=== PATIENT | male | born 1935 | race Caucasian/White ===

== ENCOUNTER 2019-10-04 09:18 | Outpatient (CLI) | payer MEDICARE ==
[2019-10-04 10:30] LABS: BASOPHILS # (AUTO) 0.04 x10^3/uL (0-0.1); BASOPHILS % (AUTO) 0 % (0-1); EOSINOPHILS # (AUTO) 0.11 x10^3/uL (0-0.4); EOSINOPHILS % (AUTO) 1 % (1-7); LYMPHOCYTES # (AUTO) 1.17 x10^3/uL (1-3.4); LYMPHOCYTES % (AUTO) 13 % (22-44); MD NO; MEAN CORPUSCULAR HGB CONC 33.1 g/dL (33.2-36.2); MEAN CORPUSCULAR VOLUME 96.5 fL (81-97); MEAN PLATELET VOLUME 9.2 fL (7.4-10.4); MONOCYTES # (AUTO) 0.82 x10^3/uL (0.2-0.8); MONOCYTES % (AUTO) 10 % (2-9); NEUTROPHILS # (AUTO) 6.58 x10^3/uL (1.8-6.8); NEUTROPHILS % (AUTO) 76 % (42-75); PLATELET COUNT 195 x10^3/uL (130-400); RED BLOOD COUNT 4.86 x10^6/uL (4.38-5.82); RED CELL DISTRIBUTION WIDTH 14.2 % (9.4-14.8)
[2019-10-04 10:38] LABS: ALANINE AMINOTRANSFERASE 9 U/L (12-78); ALBUMIN 3.8 g/dL (3.4-5.0); ANION GAP 8 mmol/L (5-15); CALCIUM 9.4 mg/dL (8.5-10.1); CHLORIDE 106 mmol/L (98-107); CREATININE 1.11 mg/dL (0.7-1.3)
[2019-10-04 10:40] LABS: ALKALINE PHOSPHATASE 137 U/L (45-117); BILIRUBIN,TOTAL 1.7 mg/dL (0.2-1.0); TOTAL PROTEIN 7.7 g/dL (6.4-8.2)
[2019-10-04] MEDS ORDERED: GLYC2TAB21 PO (11:54)
[2019-10-04] MEDS ORDERED: PRAM0.12 PO (11:54)
[2019-10-04] MEDS ORDERED: HYDR12.517 PO (11:54)
[2019-10-04] MEDS ORDERED: ATOR40TA PO (11:54)
[2019-10-04] MEDS ORDERED: CARB1TAB3 PO (11:54)
[2019-10-04] MEDS ORDERED: CLOP75TA52 PO (11:54)
== END 2019-10-04 23:59 | disposition home or self-care (01) ==
LOC: STAR 09:18
PROVIDERS: ATTEND Surgery
DX: Z01.818 Encounter for other preprocedural examination (principal); K40.90 Unilateral inguinal hernia, without obstruction or gangrene, not specified as recurrent; I44.4 Left anterior fascicular block
CPT/HCPCS: 36415; 80053; 85025; 93005

== ENCOUNTER 2019-10-08 13:25 | Day surgery (SDC) | payer MEDICARE ==
[~2019-10-08] VITALS: Ht 177.8 cm; Wt 86.7 kg
[~2019-10-08 13:25] MED LIST: ATOR40TA PO; CARB1TAB3 PO; CEFAZOLIN 1,000 MG ONE; CLOP75TA52 PO; GLYC2TAB21 PO; HYDR12.517 PO; ONDANSETRON 2MG/ML, 2ML ONE; PRAM0.12 PO; PROPOFOL 10 MG/ML, 50ML ONE
[2019-10-08] MEDS ORDERED: LACTATED RINGERS 1,000 ML IV ONE (13:46)
[2019-10-08] MEDS ORDERED: CHLORHEXIDINE 15 ML UDC MM STA (13:46)
[2019-10-08 13:49] VITALS: BP 115/74
[2019-10-08] MEDS ORDERED: CHLORHEXIDINE 15 ML UDC ONE (13:56)
[2019-10-08] MEDS ORDERED: FENTANYL PF 250 MCG/5ML ONE (15:57)
[2019-10-08] MEDS ORDERED: BUPIVACAINE/PF-EPI 0.25% 1:200K ONE (16:03)
[2019-10-08] MEDS ORDERED: DIPHENHYDRAMINE 50 MG/ML, 1ML IVPush PRN (17:00)
[2019-10-08] MEDS ORDERED: MIDAZOLAM 1 MG/ML, 2ML IV PRN (17:00)
[2019-10-08] MEDS ORDERED: LABETALOL 5MG/ML, 20ML IV PRN (17:00)
[2019-10-08] MEDS ORDERED: OXYcodone 5 MG/5 ML ORAL.SOL UDC PO PRN (17:00)
[2019-10-08] MEDS ORDERED: HYDROmorphone 1 MG/ML, 1ML INJ IVPush PRN (17:00)
[2019-10-08] MEDS ORDERED: ONDANSETRON 2MG/ML, 2ML IVPush PRN ×2 (17:00→19:00)
[2019-10-08] MEDS ORDERED: EPHEDRINE 50 MG/ML, 1ML IVPush PRN (17:00)
[2019-10-08] MEDS ORDERED: FENTANYL PF 100 MCG/2ML IV PRN (17:00)
[2019-10-08] MEDS ORDERED: EPHEDRINE 50 MG/ML, 1ML IM PRN (17:00)
[2019-10-08] MEDS ORDERED: PROMETHAZINE 25 MG/ML, 1ML IVPush PRN (17:00)
[2019-10-08] MEDS ORDERED: ACETAMINOPHEN 325 MG TABLET PO PRN (17:00)
[2019-10-08] MEDS ORDERED: ACETAMINOPHEN 650 MG/20.3 ML UDC ONE (17:28)
[2019-10-08] MEDS ORDERED: OXYcodone 5 MG/5 ML ORAL.SOL UDC ONE (17:28)
[2019-10-08] MEDS ORDERED: CARBIDOPA/LEVODOPA 25 MG/250 MG TABLET PO ONE (17:30)
[2019-10-08] MEDS ORDERED: MEPERIDINE/PF 25MG/ML,1ML ONE (17:43)
[2019-10-08] MEDS ORDERED: MEPERIDINE/PF 50 MG/ML IVPush ONE (18:00)
[2019-10-08 18:30] VITALS: BP 148/69
[2019-10-08] MEDS ORDERED: MORPHINE SULFATE 4 MG/ML, 1ML IVPush PRN (19:00)
[2019-10-08] MEDS ORDERED: HYDROcodone/APAP 5/325 TABLET PO PRN (19:00)
[2019-10-08] MEDS ORDERED: HYDR-3240 PO (20:27)
[2019-10-08] MEDS ORDERED: GLYCOPYRROLATE 1 MG TABLET PO SCH (21:00)
[2019-10-08] MEDS ORDERED: ATORVASTATIN 40 MG TABLET PO SCH (21:00)
[2019-10-08] MEDS ORDERED: SODIUM CHLORIDE FLUSH 10ML SYR IVF SCH (21:00)
[2019-10-08] MEDS ORDERED: PRAMIPEXOLE 0.125MG TABLET PO SCH (21:00)
[2019-10-08] MEDS ORDERED: CARBIDOPA/LEVODOPA 25 MG/250 MG TABLET PO SCH (21:00)
[2019-10-09] MEDS ORDERED: HYDROCHLOROTHIAZIDE 12.5 MG CAPSULE PO SCH (09:00)
[2019-10-09] MEDS ORDERED: CLOPIDOGREL 75 MG TABLET PO SCH (09:00)
== END 2019-10-08 20:50 | disposition home or self-care (01) ==
LOC: OR 13:25 → 4NE 18:22 → OR 20:50
PROVIDERS: ATTEND Surgery
DX: K40.90 Unilateral inguinal hernia, without obstruction or gangrene, not specified as recurrent (principal); Z11.59 Encounter for screening for other viral diseases; I25.10 Atherosclerotic heart disease of native coronary artery without angina pectoris; G20 Parkinson's disease; Z79.899 Other long term (current) drug therapy; Z98.890 Other specified postprocedural states; Z82.49 Family history of ischemic heart disease and other diseases of the circulatory system
CPT/HCPCS: 49505; C1781; J0690; J2175; J2405; J2704; J3010; J7120; U0001; G0378